=== PATIENT | female | born 1960 | race Caucasian/White ===

== ENCOUNTER → 2017-11-08 12:43 | Outpatient (CLI) | payer OTHER, SELFPAY ==
--- NOTE | 2017-11-07 | IMM_PTH ---
PATIENT: LULU HENDERSON LOC: [facility] U#:[id number] AGE/SX: 65/F ROOM: RE11/08/[address]: Dr. Irina Griffith MD : 1960 BED: DIS: SPEC #: [id number] RECD: 11/11/17 16:31 STATUS: JOHN REDestiny #: [id number] TIFFANIE: 11/07/17 00:[address]: Irina Griffith DEPT: IMMUNOHISTOCHEMISTRY RECD BY: Iris Sousa ENTERED: 11/14/17 16:43 SP TYPE: IMMUNO OTHR DR: Dr. Emil Horowitz, DO Tissues: A - Thyroid gland, NOS Procedures: HBME (initial) CD56 (add) CK19 (add) GAL-3 (add) PHYSICIAN & INSTITUTION [place] [id number] SPECIMEN INFORMATION: Tissue Source: A ? FNA left thyroid fluid Clinical Info: Thyroid nodules Specimen Number: [id number] CPT code: 62318, 68075 x3 METHODOLOGY: Deparaffinized sections of prefer/formalin-fixed tissue or PAP/DQ stained slides are incubated with monoclonal/polyclonal antibodies/oligonucleotide probes. Localization is made via biotin free immunoperoxidase method. Appropriate controls are performed and reacted as expected. Results on target cell population are indicated in the following table: RESULTS: ANTIBODY / CLONE RESULT Block A HBME1 (HBME-1) positive CK19 (A53-B/A2.26) positive GAL3 (9C4) positive CD56 (123C3.D5) negative These tests were developed and their performance characteristics determined by [facility]. They may not have been cleared or approved by the [place]. Food and Drug Administration. The FDA has determined that such clearance or approval is not necessary. INTERPRETATION: A. FNA, left thyroid fluid for cytology, cell block: Atypical follicular cells noted, suspicious for papillary thyroid carcinoma. This case has been reviewed in consultation with Dr. French who concurs with the above diagnosis. SJ:wiliam 11/19/17
--- NOTE | 2017-11-07 15:55 | FLU_PTH ---
PATIENT: LULU HENDERSON LOC: [facility] U#:[id number] AGE/SX: 65/F ROOM: RE11/08/[address]: Dr. Irina Griffith MD : 1960 BED: DIS: SPEC #: [id number] RECD: 11/08/17 12:19 STATUS: JOHN REDestiny #: [id number] TIFFANIE: 11/07/17 15:[address]: Irina Griffith DEPT: CYTOLOGY RECD BY: Santiago Kirk ENTERED: 11/08/17 13:58 SP TYPE: Fluid OTHR DR: Dr. Emil Horowitz, DO Tissues: A - Thyroid gland, NOS B - Thyroid gland, NOS Procedures: Special Stain Group II Surgery Specimen Level IV Cytospin Fluid Cytology Other HEADER OPERATION: Ultrasound-guided fine needle aspiration left thyroid PRE-OP DIAGNOSIS: Thyroid nodules TISSUE SUBMITTED: A ? FNA left thyroid fluid for cytology, B ? FNA left thyroid, 4 slides DIAGNOSIS CYTOLOGY A. Left thyroid, FNA (cell block and cytospin): Atypical follicular cells noted suspicious for papillary thyroid carcinoma. See comment. B. Left thyroid nodule, FNA (smears): Rare follicular cells and giant cells are noted. SJ:rg 11/14/17 COMMENT A. Immunohistochemistry ([id number]) supports the above diagnosis. Correlation with clinical, radiologic findings and appropriate follow up are necessary. Case has been reviewed in consultation with Dr. French who concurs with the above diagnosis. IDC:AM CYTOLOGY STUDY Slides are reviewed. A.. The specimen is adequate for evaluation. Cytyspins smears also show macrophages. B. The smears are paucicellular and shows only a rare follicular cells and giant cells. CYTOLOGY GROSS A - Received is 40 ml of cloudy, pink fluid labeled with the patient's name and and designated per the requisition as left thyroid. Submitted for cytology preparation including cell block. B - Received are four smears labeled with the patient's name and designated per the requisition as left thyroid. Submitted for staining. / 11/08/17 TC:5 CPT: 85148, 42915, 07358 ADDENDUM ADDENDUM ADDENDUM ADDENDUM ADDENDUM ADDENDUM ADDENDUM ADDENDUM ADDENDUM ADDENDUM 01/30/2018 10:11 ADDENDUM 01/30/2018 10:11 ADDENDUM 01/30/2018 10:11 ADDENDUM 01/30/2018 10:11 ADDENDUM 01/30/2018 10:11 This addendum is added to incorporate an outside pathology consultation report. The case was examined at [facility] (#[id number]) and the following diagnosis was rendered. A. Left thyroid, fine needle aspiration: Atypia of undetermined significance. B. Left thyroid, fine needle aspiration: Nondiagnostic aspirate sample. Please see complete above mentioned consultation report in EMR
== END ==
PROVIDERS: Family Provider Student in an Organized Health Care Education/Training Program; PCP Student in an Organized Health Care Education/Training Program; Visit Provider Surgery
DX: E04.2 Nontoxic multinodular goiter (principal)
CPT/HCPCS: 88108; 88161; 88305; 88313; 88341; 88342

== ENCOUNTER → 2018-08-12 17:53 | Outpatient (CLI) | payer OTHER, SELFPAY ==
[2018-08-12 15:27] VITALS: BMI 25.9
[2018-08-15 11:17] LABS: HPV APTIMA, High Risk Negative (Negative)
== END ==
PROVIDERS: Family Provider Student in an Organized Health Care Education/Training Program; PCP Student in an Organized Health Care Education/Training Program; Referring Provider Obstetrics & Gynecology; Visit Provider Obstetrics & Gynecology
DX: Z12.4 Encounter for screening for malignant neoplasm of cervix (principal)
CPT/HCPCS: 87624; 88175; G0145